=== PATIENT | female | born 1965 | race Hispanic/Latino ===

== ENCOUNTER 2020-06-09 10:37 | Outpatient (CLI) | payer BC ==
--- NOTE | 2020-06-09 13:03 | ULT ---
GALLBLADDER ULTRASOUND: INDICATION: Right upper quadrant pain. FINDINGS: The gallbladder has a normal sonographic appearance. No evidence of gallstones. Common bile duct normal caliber. Visualized liver appears echogenic suggesting fatty infiltration. No focal liver mass. The portal v ein showed normal blood flow with color Doppler and spectral analysis. Pancreas is obscured. The right kidney is imaged and appears normal. IMPRESSION: 1. Echogenic liver consistent with fatty infiltration. 2. Gallbladder appears unremarkable. POS: AGW
== END 2020-06-09 10:38 | disposition home or self-care (01) ==
LOC: BICULT 10:37
PROVIDERS: ATTEND Nurse Practitioner Adult Health
DX: R10.11 Right upper quadrant pain (principal); M25.511 Pain in right shoulder
CPT/HCPCS: 76705

== ENCOUNTER 2020-07-29 13:43 | Outpatient (CLI) | payer BC | END 2020-07-29 13:44 | disposition home or self-care (01) | LOC: DTY/OP 13:43 | PROVIDERS: ATTEND Nurse Practitioner Adult Health | DX: E11.65 Type 2 diabetes mellitus with hyperglycemia (principal) | CPT/HCPCS: 97802 ==